=== PATIENT | female | born 1990 | race Two or more races ===

== ENCOUNTER 2017-01-14 00:25 | Emergency (ER) | payer MEDICAID ==
[2017-01-14] MEDS ORDERED: ACETAMINOPHEN 325 MG TABLET PO ONE (00:53)
--- NOTE | 2017-01-14 00:53 | ER Document Report ---
ED Medical Screen (RME) - General Stated Complaint: LOWER BACK PAIN Time seen by provider: 00:51 Mode of Arrival: Wheelchair Information source: Patient Notes: 26 year old female presents to ED for pain in her lower right back for about a week. States she got up off the floor about a week ago and the pain started and has been since then. Denies any incontinence of urine or stool no urinary retention to patient. Has sensation to her feet and toes states she can still walk but it is painful. Last menstrual period was about 01/08/2017. I have greeted and performed a rapid initial assessment of this patient. A comprehensive ED assessment and evaluation of the patient, analysis of test results and completion of medical decision making process will be conducted by an additional ED providers. TRAVEL OUTSIDE OF THE [place] IN LAST 30 DAYS: No - Related Data Allergies/Adverse Reactions: ibuprofen [Ibuprofen] Adverse Reaction (Unknown, Verified 07/05/16 22:53) VOMITING Past Medical History Psychiatric Medical History: Reports: Hx Depression Traumatic Medical History: Reports: Hx Fractures - collar bone Past Surgical History: Reports: Hx Appendectomy, Hx Orthopedic Surgery - foot - Immunizations Immunizations up to date: Yes Hx Diphtheria, Pertussis, Tetanus Vaccination: No Physical Exam - Vital signs Vitals: Temp Pulse Resp BP Pulse Ox 98.1 F 90 18 128/84 H 97 01/14/17 00:48 01/14/17 00:48 01/14/17 00:48 01/14/17 00:48 01/14/17 00:48 Course - Vital Signs Vital signs: Temp Pulse Resp BP Pulse Ox 98.1 F 90 18 128/84 H 97 01/14/17 00:48 01/14/17 00:48 01/14/17 00:48 01/14/17 00:48 01/14/17 00:48
[2017-01-14] MEDS ORDERED: HYDROCODONE/ACETAMINOPHEN 5-325 MG 6 TAB/DSPK PO PRN (04:56)
--- NOTE | 2017-01-14 04:59 | ER Document Report ---
ED Neck/Back Problem - General Chief Complaint: Low Back Pain Stated Complaint: LOWER BACK PAIN Time seen by provider: 04:53 Mode of Arrival: Wheelchair Information source: Patient Notes: [age] female presents to ED for pain in her lower right back for about a week. She states she got up off the floor and the pain started and has been present since then. Denies any incontinence of urine or stool. Denies any urinary retention or constipation. Has sensation to her feet and toes. States she cannot take ibuprofen because it makes her vomit. He denies any fall or injury. TRAVEL OUTSIDE OF THE [place] IN LAST 30 DAYS: No - HPI Patient complains to provider of: Pain, Lower back Onset: Last week Where: Home, Indoors Onset: Gradual - When getting up off the floor Quality of pain: Achy Severity: Moderate Pain Level: 4 Context: Other - Getting up off the floor Associated symptoms: Lower back pain - Right muscles. denies: Constipation, Incontinence, Motor loss, Numbness/tingling, Sensory loss, Unable to urinate Exacerbated by: Movement of trunk Relieved by: Nothing Similar symptoms previously: No Recently seen / treated by doctor: No - Related Data Allergies/Adverse Reactions: ibuprofen [Ibuprofen] Adverse Reaction (Unknown, Verified 07/05/16 22:53) VOMITING Past Medical History - General Information source: Patient - Social History Smoking Status: Current Every Day Smoker Cigarette use (# per day): Yes - half pack a day Chew tobacco use (# tins/day): No Smoking Education Provided: Yes - less than 1 minute Frequency of alcohol use: Occasional Drug Abuse: None 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 Lives with: Friend Family History: Arthritis, DM, Hypertension, Malignancy - Past Medical History Cardiac Medical History: Reports: None Pulmonary Medical History: Reports: None Neurological Medical History: Reports: None Endocrine Medical History: Reports: None Renal/ Medical History: Reports: None Malignancy Medical History: Reports: None GI Medical History: Reports: None Musculoskeltal Medical History: Reports Hx Musculoskeletal Deformity - Foot, Reports Hx Musculoskeletal Trauma - Fractured collarbone Skin Medical History: Reports None Psychiatric Medical History: Reports: Hx Depression Traumatic Medical History: Reports: Hx Fractures - collar bone Infectious Medical History: Reports: None Past Surgical History: Reports: Hx Appendectomy, Hx Orthopedic Surgery - foot - Immunizations Immunizations up to date: No Hx Diphtheria, Pertussis, Tetanus Vaccination: No Review of Systems - Review of Systems Constitutional: No symptoms reported EENT: No symptoms reported Cardiovascular: No symptoms reported Respiratory: No symptoms reported Gastrointestinal: No symptoms reported Genitourinary: No symptoms reported Female Genitourinary: No symptoms reported Musculoskeletal: Back pain, Muscle pain Skin: No symptoms reported Hematologic/Lymphatic: No symptoms reported Neurological/Psychological: No symptoms reported Physical Exam - Vital signs Vitals: Temp Pulse Resp BP Pulse Ox 98.1 F 90 18 128/84 H 97 01/14/17 00:48 01/14/17 00:48 01/14/17 00:48 01/14/17 00:48 01/14/17 00:48 Interpretation: Normal - General General appearance: Appears well, Alert - HEENT Head: Normocephalic, Atraumatic Eyes: Normal Pupils: PERRL - Respiratory Respiratory status: No respiratory distress Chest status: Nontender Breath sounds: Normal Chest palpation: Normal - Cardiovascular Rhythm: Regular Heart sounds: Normal auscultation Murmur: No - Abdominal Inspection: Normal Distension: No distension Bowel sounds: Normal Tenderness: Nontender Organomegaly: No organomegaly - Back Back: Normal, Tender - Right lower back. No: Deformity/step-off, CVA tenderness , Vertebra tenderness, Scars, Scoliosis, Wounds - Extremities General upper extremity: Normal inspection, Nontender, Normal color, Normal ROM , Normal temperature General lower extremity: Normal inspection, Nontender, Normal color, Normal ROM , Normal temperature, Normal weight bearing. 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 Patient has pain to the right muscle area no vertebral tenderness. Patient states she is allergic to ibuprofen. Patient treated with Tylenol in [facility] and discharged home with back care instructions, back exercises, [employer] dispense Jairo , prescription for Flexeril. Patient to follow-up with primary doctor. - Vital Signs Vital signs: Temp Pulse Resp BP Pulse Ox 98.1 F 90 18 128/84 H 97 01/14/17 00:48 01/14/17 00:48 01/14/17 00:48 01/14/17 00:48 01/14/17 00:48 Discharge - Discharge Clinical Impression: Low back pain Qualifiers: Chronicity: acute Back pain laterality: right Sciatica presence: without sciatica Qualified Code(s): M54.5 - Low back pain Condition: Stable Disposition: HOME, SELF-CARE Instructions: Stretching Exercises for the Back ([facility]) Additional Instructions: LOW BACK PAIN: Three out of every four people will have an episode of disabling back pain during their lifetime. Most commonly the pain is due to straining of the muscles and ligaments in the low back. Usual treatment includes: (1) Rest on a firm surface. Avoid lying on your stomach. (2) Ice pack the painful area. After a few days, gentle heat may be used intermittently to relax the area, or ice packs can be continued. (3) Medication may be needed -- muscle relaxers and antiinflammatory medicines are commonly used. (4) As the back improves, exercises are prescribed to strengthen the back and abdominal muscles. Your doctor will advise you on the proper care for your back at each stage in your recovery. You may be better in a few days -- or healing may take several weeks. If new symptoms of a "herniated disc" (radiation of pain, numbness, or tingling down the back of the leg or weakness in the leg) occur, you should be re-examined. Further testing may be necessary. ORAL NARCOTIC MEDICATION: You have been given a prescription for pain control. This medication is a narcotic. It's best taken with food, as nausea can result if taken on an empty stomach. Don't operate machinery or drive within six hours of taking this medication. Do not combine this medicine with alcohol, or with any medication which can cause sedation (such as cold tablets or sleeping pills) unless you get permission from the physician. Narcotics tend to cause constipation. If possible, drink plenty of fluids and eat a diet high in fiber and fruits. Please be aware that prescription narcotics also have the potential for abuse. People become addicted to these medications because of the general sense of wellbeing that they induce. This feeling along with a significant reduction in tension, anxiety, and aggression provides a stimulating seductive quality to these drugs. Once your pain is under control, we encourage you to discard your unused narcotics. MUSCLE RELAXERS: Muscle relaxing medications are usually prescribed for acute muscle spasm or injury to the neck and back. They are often combined with antiinflammatory pain medication for increased relief. You may stop the muscle relaxer when the pain and stiffness have improved. Start the medication again if spasms recur. Muscle relaxers may cause drowsiness, especially with the first dose. Do not operate machinery or drive while under the effects of the medication. Most muscle relaxers last up to 24 hours. Do not combine the medication with alcohol. ICE PACKS: Apply ice packs frequently against the painful area. Many different schedules are recommended, such as "20 minutes on, 20 minutes off" or "one hour ice, two hours rest." If you need to work, you may need to go longer between ice treatments. You should plan to have the area ice packed AT LEAST one fourth of the time. The ice should be applied over the wrap, tape, or splint, or over a layer of cloth -- not directly against the skin. Some ice bags have a built-in cloth and can be put directly on the skin. WARM PACKS: After approximately two days, apply gentle heat (such as a heating pad or hot water bottle) for about 20 to 30 minutes about every two hours -- at least four times daily. Warmth and elevation will help you make a more rapid recovery , and will ease the pain considerably. Do not use HOT heat, and never apply heat for longer than 30 minutes. The continuous heat can invisibly damage skin and muscles -- even when no burn is seen on the surface. Damaged muscles can make you MORE sore. FOLLOW-UP CARE: If you have been referred to a physician for follow-up care, call the physician s office for an appointment as you were instructed or within the next two days. If you experience worsening or a significant change in your symptoms, notify the physician immediately or return to the Emergency Department at any time for re-evaluation. Prescriptions: Cyclobenzaprine HCl [Flexeril 5 mg Tablet] 5 mg PO TID #10 tablet Forms: Smoking Cessation Education, Elevated Blood Pressure, Return to Work [facility] - Follow up as needed
[2017-01-14 05:25] VITALS: BP 119/88
== END 2017-01-14 05:20 | disposition home or self-care (01) ==
LOC: ER 00:25
DX: M54.5 Low back pain (principal); F17.210 Nicotine dependence, cigarettes, uncomplicated; Z71.6 Tobacco abuse counseling
CPT/HCPCS: 99283; J3490

== ENCOUNTER 2017-02-21 13:11 | Emergency (ER) | payer MEDICAID ==
[2017-02-21] MEDS ORDERED: ONDANSETRON 4 MG TAB.RAPDIS PO ONE (14:37)
--- NOTE | 2017-02-21 14:38 | ER Document Report ---
ED Medical Screen (RME) - General Chief Complaint: Abdominal Pain Stated Complaint: ABDOMINAL PAIN TRAVEL OUTSIDE OF THE [place] IN LAST 30 DAYS: No - HPI Patient complains to provider of: right lower quadrant pain Notes: 02/21/17 14:38 Right lower quadrant pain nausea vomiting fevers chills. Patient states history of appendectomy. - Related Data Allergies/Adverse Reactions: ibuprofen [Ibuprofen] Adverse Reaction (Unknown, Verified 02/21/17 13:17) VOMITING Past Medical History Renal/ Medical History: Denies: Hx Peritoneal Dialysis Musculoskeltal Medical History: Reports Hx Musculoskeletal Deformity - Foot, Reports Hx Musculoskeletal Trauma - Fractured collarbone Psychiatric Medical History: Reports: Hx Depression Traumatic Medical History: Reports: Hx Fractures - collar bone Past Surgical History: Reports: Hx Appendectomy, Hx Orthopedic Surgery - foot - Immunizations Immunizations up to date: No Hx Diphtheria, Pertussis, Tetanus Vaccination: No Review of Systems - Review of Systems Gastrointestinal: Abdominal pain, Diarrhea, Nausea, Vomiting Physical Exam - Vital signs Vitals: Temp Pulse Resp BP Pulse Ox 98.6 F 103 H 20 131/77 H 99 02/21/17 13:18 02/21/17 13:18 02/21/17 13:18 02/21/17 13:18 02/21/17 13:18 - Respiratory Respiratory status: No respiratory distress Chest status: Nontender Breath sounds: Normal Course - Vital Signs Vital signs: Temp Pulse Resp BP Pulse Ox 98.6 F 103 H 20 131/77 H 99 02/21/17 13:18 02/21/17 13:18 02/21/17 13:18 02/21/17 13:18 02/21/17 13:18
[2017-02-21 14:57] LABS: ABSOLUTE EOSINOPHILS # (AUTO) 0.1 10^3/uL (0.0-0.6); ABSOLUTE LYMPHOCYTES (AUTO) 1.5 10^3/uL (0.5-4.7); ABSOLUTE MONOCYTES (AUTO) 0.9 10^3/uL (0.1-1.4); ABSOLUTE NEUT (AUTO) 11.3 10^3/uL (1.7-8.2); BASOPHILS % (AUTO) 0.3 % (0-2); EOSINOPHILS % (AUTO) 0.7 % (0-6); HEMATOCRIT 42.6 % (36.0-47.0); HGB HCT DIFFERENCE -0.6; LYMPHOCYTES % (AUTO) 10.7 % (13-45); MEAN CORPUSCULAR HGB CONC 32.9 g/dL (32.0-36.0); MEAN CORPUSCULAR VOLUME 82 fl (80-97); MONOCYTES % (AUTO) 6.7 % (3-13); RED BLOOD COUNT 5.17 10^6/uL (3.72-5.28); RED CELL DISTRIBUTION WIDTH 14.8 % (11.5-14.0); SEGMENTED NEUTROPHILS % (AUTO) 81.6 % (42-78); WHITE BLOOD COUNT 13.9 10^3/uL (4.0-10.5)
[2017-02-21 15:03] LABS: AMORPHOUS SEDIMENT,URINE TRACE /HPF; APPEARANCE,URINE CLOUDY; BILIRUBIN,URINE NEGATIVE (NEGATIVE); GLUCOSE, URINE NEGATIVE (NEGATIVE); KETONES,URINE NEGATIVE (NEGATIVE); LEUKOCYTE ESTERASE,URINE TRACE (NEGATIVE); NITRITE,URINE NEGATIVE (NEGATIVE); PROTEIN,URINE 30 mg/dL (NEGATIVE); URINE SPECIFIC GRAVITY 1.033
[2017-02-21 15:12] LABS: ANION GAP 13 (5-19); BLOOD UREA NITROGEN 10 mg/dL (7-20); CALCIUM 10.2 mg/dL (8.4-10.2); CARBON DIOXIDE 25 mmol/L (22-30); CHLORIDE 106 mmol/L (98-107); CREATININE RESULT 0.57 mg/dL (0.52-1.25); GLUCOSE 93 mg/dL (75-110); SODIUM 144.2 mmol/L (137-145)
--- NOTE | 2017-02-21 16:23 | ER Document Report ---
ED GI/ - General Mode of Arrival: Ambulatory Information source: Patient TRAVEL OUTSIDE OF THE [place] IN LAST 30 DAYS: No - HPI Patient complains to provider of: Abdominal pain - RLQ. No: Flank pain, Vaginal bleeding Onset: Other - 3 days ago Location: RLQ Vaginal bleeding (Compared to normal period): None Sexual history: Active Associated symptoms: Other - see notes above <IWONA GEORGE - Last Filed: 02/21/17 18:06> <JORDI SNELL - Last Filed: 02/21/17 19:03> - General Chief Complaint: Abdominal Pain Stated Complaint: ABDOMINAL PAIN Notes: 26 year old female with history of ovarian cysts and an appendectomy presents to the ED complaining of RLQ abdominal pain that started 3 days ago. Patient reports that the pain does not radiates to her back. Patient denies any vaginal bleeding or dysuria. Patient's last bowel movement was earlier today and describes it as normal. According to triage notes, patient had similar pains last summer and was diagnosed with ovarian cysts that she was supposed to follow up with a provider, but did not. Patient's last menstural period was 05/2014. Patient is sexually active, but states that she does not think this is a STD. (IWONA GEORGE) - Related Data Allergies/Adverse Reactions: ibuprofen [Ibuprofen] Adverse Reaction (Unknown, Verified 02/21/17 13:17) VOMITING Past Medical History - General Information source: Patient - Social History Smoking Status: Unknown if Ever Smoked Family History: Arthritis, DM, Hypertension, Malignancy Patient has suicidal ideation: No Patient has homicidal ideation: No Renal/ Medical History: Reports: Hx Ovarian Cysts. Denies: Hx Peritoneal Dialysis Musculoskeltal Medical History: Reports Hx Musculoskeletal Deformity - Foot, Reports Hx Musculoskeletal Trauma - Fractured collarbone Psychiatric Medical History: Reports: Hx Depression Traumatic Medical History: Reports: Hx Fractures - collar bone Past Surgical History: Reports: Hx Appendectomy, Hx Orthopedic Surgery - foot - Immunizations Immunizations up to date: No Hx Diphtheria, Pertussis, Tetanus Vaccination: No <IWONA GEORGE - Last Filed: 02/21/17 18:06> Review of Systems - Review of Systems Constitutional: No symptoms reported EENT: No symptoms reported Cardiovascular: No symptoms reported Respiratory: No symptoms reported Gastrointestinal: See HPI, Abdominal pain - RLQ, Last bowel movement - earlier today; normal Genitourinary: No symptoms reported. denies: Dysuria Female Genitourinary: See HPI, Last menstrual period - 01/26/2014. denies: Vaginal bleeding Musculoskeletal: No symptoms reported Skin: No symptoms reported Hematologic/Lymphatic: No symptoms reported Neurological/Psychological: No symptoms reported -: Yes All other systems reviewed and negative <IWONA GEORGE - Last Filed: 02/21/17 18:06> Physical Exam - General General appearance: Alert In distress: None - HEENT Head: Normocephalic, Atraumatic Eyes: Normal Extraocular movements intact: Yes Pupils: PERRL - Respiratory Respiratory status: No respiratory distress Breath sounds: Normal - Cardiovascular Rhythm: Regular Heart sounds: Normal auscultation - Abdominal Inspection: Normal Distension: No distension Tenderness: Tender - right pevlic tenderness to palpation. No: Nontender - Back Back: Normal. No: CVA tenderness - Extremities General upper extremity: Normal inspection, Normal ROM General lower extremity: Normal inspection, Normal ROM - Neurological Neuro grossly intact: Yes Cognition: Normal Orientation: AAOx4 [place] Coma Scale Eye Opening: Spontaneous Goldie Coma Scale Verbal: Oriented [place] Coma Scale Motor: Obeys Commands [place] Coma Scale Total: 15 Speech: Normal - Psychological Associated symptoms: Normal affect, Normal mood - Skin Skin Temperature: Warm Skin Moisture: Dry Skin Color: Normal <IWONA GEORGE - Last Filed: 02/21/17 18:06> Course - Laboratory Result Diagrams: 02/21/17 14:40 02/21/17 14:40 - Consults Dr. Ramirez Time consulted: 16:51 <IWONA GEORGE - Last Filed: 02/21/17 18:06> - Laboratory Result Diagrams: 02/21/17 14:40 02/21/17 14:40 - Diagnostic Test Radiology reviewed: Reports reviewed <JORDI SNELL - Last Filed: 02/21/17 19:03> - Re-evaluation Re-evalutation: 02/21/17 Patient with teratoma involving R ovary. Patient will be given pain and nausea medication to go home with. Patient was discussed with Dr. Ferrari states that they will follow the patient regarding removal of the teratoma. No evidence for torsion. No evidence for infection or renal stone. Patient agrees with this plan. Stable for discharge. (JORDI SNELL) - Vital Signs Vital signs: Temp Pulse Resp BP Pulse Ox 98.5 F 89 16 126/72 H 99 02/21/17 17:36 02/21/17 17:36 02/21/17 17:36 02/21/17 17:36 02/21/17 17:36 - Laboratory Laboratory results interpreted by me: 02/21/17 02/21/17 14:40 14:40 WBC 13.9 H RDW 14.8 H Seg Neutrophils % 81.6 H Lymphocytes % 10.7 L Absolute Neutrophils 11.3 H Urine Protein 30 H Urine Urobilinogen 2.0 H Ur Leukocyte Esterase TRACE H Urine Ascorbic Acid 20 H - Consults Dr. Ramirez Reason for consultation: 02/21/17 16:51 Patient was discussed with Dr. Ramirez and agrees to see the patient in the clinic. 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.0 - Benign neoplasm of right ovary Condition: Stable Disposition: HOME, SELF-CARE Instructions: Ovarian Cyst ([facility]) Prescriptions: Ondansetron [Zofran Odt 4 mg Tablet] 1 - 2 tab PO Q4H PRN #15 tab.rapdis PRN Reason: For Nausea/Vomiting Oxycodone HCl/Acetaminophen [Percocet 5-325 mg Tablet] 1 - 2 tab PO Q4H PRN #15 tablet PRN Reason: Forms: Return to Work Referrals: DEANNA RAMIREZ MD [ACTIVE STAFF] - Follow up in 3-5 days Scribe Attestation: 02/21/17 19:03 I personally performed the services described in the documentation, reviewed and edited the documentation which was dictated to the scribe in my presence, and it accurately records my words and actions. (JORDI SNELL) Scribe Documentation - Scribe Written by Scribe:: Milton Llamas, 02/21/2017 [id number] acting as scribe for :: Suzette <IWONA GEORGE - Last Filed: 02/21/17 18:06>
[2017-02-21] MEDS ORDERED: OXYCODONE-ACETAMINOPHEN 5-325 MG TABLET PO ONE (16:51)
[2017-02-21 17:37] VITALS: BP 126/72
== END 2017-02-21 17:37 | disposition home or self-care (01) ==
LOC: ER 13:11
DX: D27.0 Benign neoplasm of right ovary (principal); R10.31 Right lower quadrant pain
CPT/HCPCS: 99284; 36415; 84703; 85025; 80048; 81001; 76830; 93976; 76380; S0119

== ENCOUNTER 2017-03-13 01:38 | Emergency (ER) | payer MEDICAID ==
[2017-03-13] MEDS ORDERED: OXYCODONE-ACETAMINOPHEN 5-325 MG TABLET PO ONE (03:34)
--- NOTE | 2017-03-13 03:34 | ER Document Report ---
ED Medical Screen (RME) - General Chief Complaint: Abdominal Pain Stated Complaint: LOWER RIGHT ABDOMINAL PAIN Mode of Arrival: Ambulatory Information source: Patient Notes: Patient with a history of a teratoma to the right ovary. Patient reports sudden increase of pain around midnight tonight. Patient denies any fever, nausea, vomiting or urinary symptoms. TRAVEL OUTSIDE OF THE [place] IN LAST 30 DAYS: No - Related Data Allergies/Adverse Reactions: ibuprofen [Ibuprofen] Adverse Reaction (Unknown, Verified 02/21/17 13:17) VOMITING Past Medical History Renal/ Medical History: Reports: Hx Ovarian Cysts. Denies: Hx Peritoneal Dialysis Musculoskeltal Medical History: Reports Hx Musculoskeletal Deformity - Foot, Reports Hx Musculoskeletal Trauma - Fractured collarbone Psychiatric Medical History: Reports: Hx Depression Traumatic Medical History: Reports: Hx Fractures - collar bone Past Surgical History: Reports: Hx Appendectomy, Hx Orthopedic Surgery - foot - Immunizations Immunizations up to date: No Hx Diphtheria, Pertussis, Tetanus Vaccination: No Physical Exam - Vital signs Vitals: Temp Pulse Resp BP Pulse Ox 98.2 F 81 18 125/77 100 03/13/17 02:49 03/13/17 02:49 03/13/17 02:49 03/13/17 02:49 03/13/17 02:49 - Abdominal Tenderness: Tender - Right pelvic Course - Vital Signs Vital signs: Temp Pulse Resp BP Pulse Ox 98.2 F 81 18 125/77 100 03/13/17 02:49 03/13/17 02:49 03/13/17 02:49 03/13/17 02:49 03/13/17 02:49
--- NOTE | 2017-03-13 06:23 | ER Document Report ---
ED GI/ - General Mode of Arrival: Ambulatory Information source: Patient TRAVEL OUTSIDE OF THE [place]. IN LAST 30 DAYS: No - HPI Patient complains to provider of: Abdominal pain - RLQ Onset: Other - last night Location: RLQ Associated symptoms: Other - see notes above <IWONA GEORGE - Last Filed: 03/13/17 07:34> <ELLIOTT LOPEZ - Last Filed: 04/01/17 15:32> - General Chief Complaint: Abdominal Pain Stated Complaint: LOWER RIGHT ABDOMINAL PAIN Notes: 26 year old female with history of ovarian cysts and a teratoma presents to the ED complaining of RLQ abdominal pain that started this morning. Patient was seen on 02/21/2017 for similar complaints and was told to follow up with her OB , Dr. Rothman, regarding this complaint. Patient states that she saw Dr. Rothman 4 days ago and was told that she needs a referral to an oncologist. Patient is unsure why she needs to see an oncologist. Patient reports that Dr. Rothman is not prescribing any medication for the teratoma. Patient does not have a follow up appointment with Dr. Rothman because she was told that they will call if she needs another appointment. Patient's primary care provider is the [facility]. (IWONA GEORGE) - Related Data Allergies/Adverse Reactions: ibuprofen [Ibuprofen] Adverse Reaction (Unknown, Verified 02/21/17 13:17) VOMITING Past Medical History - General Information source: Patient - Social History Smoking Status: Unknown if Ever Smoked Family History: Arthritis, DM, Hypertension, Malignancy Patient has suicidal ideation: No Patient has homicidal ideation: No Renal/ Medical History: Reports: Hx Ovarian Cysts. Denies: Hx Peritoneal Dialysis Musculoskeltal Medical History: Reports Hx Musculoskeletal Deformity - Foot, Reports Hx Musculoskeletal Trauma - Fractured collarbone Psychiatric Medical History: Reports: Hx Depression Traumatic Medical History: Reports: Hx Fractures - collar bone Past Surgical History: Reports: Hx Appendectomy, Hx Orthopedic Surgery - foot - Immunizations Immunizations up to date: No Hx Diphtheria, Pertussis, Tetanus Vaccination: No <IWONA GEORGE - Last Filed: 03/13/17 07:34> Review of Systems - Review of Systems Constitutional: No symptoms reported EENT: No symptoms reported Cardiovascular: No symptoms reported Respiratory: No symptoms reported Gastrointestinal: See HPI, Abdominal pain - RLQ Genitourinary: No symptoms reported Female Genitourinary: No symptoms reported Musculoskeletal: No symptoms reported Skin: No symptoms reported Hematologic/Lymphatic: No symptoms reported Neurological/Psychological: No symptoms reported -: Yes All other systems reviewed and negative <IWONA GEORGE - Last Filed: 03/13/17 07:34> Physical Exam - General General appearance: Alert In distress: None - HEENT Head: Normocephalic, Atraumatic Eyes: Normal Extraocular movements intact: Yes Pupils: PERRL - Respiratory Respiratory status: No respiratory distress Breath sounds: Normal - Cardiovascular Rhythm: Regular Heart sounds: Normal auscultation - Abdominal Inspection: Normal Distension: No distension Tenderness: Nontender. No: Guarding, Rebound - Back Back: Normal - Extremities General upper extremity: Normal inspection, Normal ROM General lower extremity: Normal inspection, Normal ROM - Neurological Neuro grossly intact: Yes Cognition: Normal Orientation: AAOx4 [place] Coma Scale Eye Opening: Spontaneous [place] Coma Scale Verbal: Oriented [place] Coma Scale Motor: Obeys Commands [place] Coma Scale Total: 15 Speech: Normal - Psychological Associated symptoms: Normal affect, Normal mood - Skin Skin Temperature: Warm Skin Moisture: Dry Skin Color: Normal <IWONA GEORGE - Last Filed: 03/13/17 07:34> Course - Laboratory Result Diagrams: 03/13/17 06:04 03/13/17 06:04 <IWONA GEORGE - Last Filed: 03/13/17 07:34> - Laboratory Result Diagrams: 03/13/17 06:04 03/13/17 06:04 <ELLIOTT LOPEZ - Last Filed: 04/01/17 15:32> - Re-evaluation Re-evalutation: 03/13/17 06:28 Patient presents emergency per with a chief complaint of right-sided abdominal pain patient seen and evaluated here recently diagnosed with an ovarian cyst possible teratoma followed up outpatient by Dr. Rothman on Wednesday Dr. Rothman stated that they were going to refer her to a quarrying specialist in [place] she is waiting for the appointment. She states Dr. Rothmanon prescribe anything for her discomfort and has not seen a primary care physician. On exam well- appearing nontoxic no acute abdominal guarding rebound or rigidity. Masses increased in size very slightly from 3.4-3.7. No torsion. Patient is allergic to Motrin Toradol and Naprosyn which is what I would prescribe for this. Told her any ongoing pain medications or chronic related complaints secondary to this needed to be managed by the [facility] or primary care physician but to return immediately for any other signs of a torsion and went into great detail on worsening pain or torsion type pain to return immediately to the emergency department. 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 This is a ball of fluid attached to the ovary. Ovarian cysts in women of child-bearing age are usually innocent. However, the cyst may cause pain when it grows or bursts. An innocent ovarian cyst will usually go away by itself. When the cyst becomes painful, you should rest. Pain medication may be required. Some women find a hot water bottle soothing. The pain usually resolves within one or two days. After menopause, an ovarian cyst may mean a tumor, and requires more aggressive evaluation -- usually surgery is recommended to remove or biopsy the cyst. A very large cyst requires evaluation at any age. Most cysts (even the innocent ones) require follow-up examination. Call the doctor or return at any time if the pain increases significantly, if you become faint, or if you experience vaginal bleeding. Forms: Return to Work Referrals: RADHA ROTHMAN MD [ACTIVE STAFF] - Follow up as needed (Please create a second visit with Dr. Rothman who is managing this is going forward any or all medications would need to be prescribed by him or your primary care physician and see them in 2-3 days return for increasing worsening or new symptoms) Johnibe Attestation: 03/13/17 06:27 I personally performed the services described in the documentation reviewed the documentation recorded by my scribe in my presence and it accurately and completely records my words and actions (ELLIOTT LOPEZ) Scribe Documentation - Scribe Written by Milton:: Milton Llamas, 03/13/2017 [id number] acting as scribe for :: Erik <IWONA GEORGE - Last Filed: 03/13/17 07:34>
[2017-03-13 06:25] LABS: ABSOLUTE BASOPHILS # (AUTO) 0.1 10^3/uL (0.0-0.2); ABSOLUTE EOSINOPHILS # (AUTO) 0.2 10^3/uL (0.0-0.6); ABSOLUTE LYMPHOCYTES (AUTO) 3.2 10^3/uL (0.5-4.7); ABSOLUTE MONOCYTES (AUTO) 0.8 10^3/uL (0.1-1.4); ABSOLUTE NEUT (AUTO) 7.1 10^3/uL (1.7-8.2); BASOPHILS % (AUTO) 0.6 % (0-2); EOSINOPHILS % (AUTO) 2.1 % (0-6); HEMATOCRIT 39.2 % (36.0-47.0); HEMOGLOBIN 12.8 g/dL (12.0-15.5); HGB HCT DIFFERENCE -0.8; LYMPHOCYTES % (AUTO) 28.2 % (13-45); MEAN CORPUSCULAR HEMOGLOBIN 26.6 pg (27.0-33.4); MEAN CORPUSCULAR HGB CONC 32.7 g/dL (32.0-36.0); MEAN CORPUSCULAR VOLUME 81 fl (80-97); RED BLOOD COUNT 4.83 10^6/uL (3.72-5.28); RED CELL DISTRIBUTION WIDTH 14.7 % (11.5-14.0); SEGMENTED NEUTROPHILS % (AUTO) 62.1 % (42-78); WHITE BLOOD COUNT 11.5 10^3/uL (4.0-10.5)
[2017-03-13 06:27] LABS: APPEARANCE,URINE SLIGHTLY-CLOUDY; BILIRUBIN,URINE SMALL (NEGATIVE); GLUCOSE, URINE NEGATIVE (NEGATIVE); KETONES,URINE TRACE mg/dL (NEGATIVE); LEUKOCYTE ESTERASE,URINE NEGATIVE (NEGATIVE); NITRITE,URINE NEGATIVE (NEGATIVE); PROTEIN,URINE 30 mg/dL (NEGATIVE); URINE SPECIFIC GRAVITY 1.034
[2017-03-13 06:43] LABS: ALANINE AMINOTRANSFERASE 33 U/L (9-52); ALBUMIN 4.5 g/dL (3.5-5.0); ALKALINE PHOSPHATASE 61 U/L (38-126); ANION GAP 15 (5-19); ASPARTATE AMINO TRANSFERASE 51 U/L (14-36); BILIRUBIN,DIRECT 0.2 mg/dL (0.0-0.4); BILIRUBIN,TOTAL 0.3 mg/dL (0.2-1.3); BLOOD UREA NITROGEN 10 mg/dL (7-20); CALCIUM 9.6 mg/dL (8.4-10.2); CARBON DIOXIDE 25 mmol/L (22-30); CHLORIDE 107 mmol/L (98-107); GLUCOSE 84 mg/dL (75-110); LIPASE 67.3 U/L (23-300); POTASSIUM 3.5 mmol/L (3.6-5.0); SODIUM 146.8 mmol/L (137-145); TOTAL PROTEIN 7.6 g/dL (6.3-8.2)
[2017-03-13 06:45] VITALS: BP 123/90
== END 2017-03-13 06:35 | disposition home or self-care (01) ==
LOC: ER 01:38
DX: D27.0 Benign neoplasm of right ovary (principal); R10.30 Lower abdominal pain, unspecified
CPT/HCPCS: 36415; 76830; 80053; 81001; 81025; 83690; 85025; 99284

== ENCOUNTER 2017-05-19 04:32 | Emergency (ER) | payer MEDICAID ==
[2017-05-19 05:06] LABS: ABSOLUTE BASOPHILS # (AUTO) 0.1 10^3/uL (0.0-0.2); ABSOLUTE EOSINOPHILS # (AUTO) 0.2 10^3/uL (0.0-0.6); ABSOLUTE LYMPHOCYTES (AUTO) 2.5 10^3/uL (0.5-4.7); ABSOLUTE MONOCYTES (AUTO) 0.9 10^3/uL (0.1-1.4); ABSOLUTE NEUT (AUTO) 8.3 10^3/uL (1.7-8.2); BASOPHILS % (AUTO) 0.4 % (0-2); EOSINOPHILS % (AUTO) 1.8 % (0-6); HEMATOCRIT 37.2 % (36.0-47.0); HEMOGLOBIN 12.2 g/dL (12.0-15.5); HGB HCT DIFFERENCE -0.6; LYMPHOCYTES % (AUTO) 20.8 % (13-45); MEAN CORPUSCULAR HEMOGLOBIN 26.7 pg (27.0-33.4); MEAN CORPUSCULAR HGB CONC 32.6 g/dL (32.0-36.0); MEAN CORPUSCULAR VOLUME 82 fl (80-97); MONOCYTES % (AUTO) 7.2 % (3-13); RED BLOOD COUNT 4.55 10^6/uL (3.72-5.28); RED CELL DISTRIBUTION WIDTH 14.5 % (11.5-14.0); SEGMENTED NEUTROPHILS % (AUTO) 69.8 % (42-78); WHITE BLOOD COUNT 11.9 10^3/uL (4.0-10.5)
--- NOTE | 2017-05-19 05:14 | ER Document Report ---
ED General - General Chief Complaint: Abdominal Pain Stated Complaint: ABDOMINAL PAIN Time Seen by Provider: 05/19/17 04:52 Mode of Arrival: Medic Information source: Patient TRAVEL OUTSIDE OF THE [place] IN LAST 30 DAYS: No - Related Data Allergies/Adverse Reactions: ibuprofen [Ibuprofen] Adverse Reaction (Unknown, Verified 02/21/17 13:17) VOMITING Past Medical History - General Information source: Patient - Social History Family History: Arthritis, DM, Hypertension, Malignancy Renal/ Medical History: Reports: Hx Ovarian Cysts. Denies: Hx Peritoneal Dialysis Musculoskeltal Medical History: Reports Hx Musculoskeletal Deformity - Foot, Reports Hx Musculoskeletal Trauma - Fractured collarbone Psychiatric Medical History: Reports: Hx Depression Traumatic Medical History: Reports: Hx Fractures - collar bone Past Surgical History: Reports: Hx Appendectomy, Hx Orthopedic Surgery - foot - Immunizations Immunizations up to date: No Hx Diphtheria, Pertussis, Tetanus Vaccination: No Review of Systems - Review of Systems Notes: Review HPI for review of systems., All other systems negative Physical Exam - Notes Notes: PHYSICAL EXAMINATION: GENERAL: Well-appearing and in no acute distress HEAD: Atraumatic, normocephalic. EYES: Pupils equal round and reactive to light, extraocular movements intact, sclera anicteric, conjunctiva are normal. ENT: nares patent, oropharynx clear without exudates. Moist mucous membranes. NECK: Normal range of motion, supple without lymphadenopathy LUNGS: CTAB and equal. No wheezes rales or rhonchi. HEART: Regular rate and rhythm without murmurs ABDOMEN: Soft, no tenderness. No guarding, no rebound EXTREMITIES: Normal range of motion, no pitting edema. No cyanosis. NEUROLOGICAL: Cranial nerves grossly intact. Normal sensory/motor exams. PSYCH: Normal mood, normal affect. SKIN: Warm, Dry, normal turgor, no rashes or lesions noted Course - Laboratory Result Diagrams: 05/19/17 04:42 05/19/17 04:42 Laboratory results interpreted by me: 05/19/17 04:42 WBC 11.9 H MCH 26.7 L RDW 14.5 H Absolute Neutrophils 8.3 H
[2017-05-19 05:20] LABS: ALANINE AMINOTRANSFERASE 30 U/L (9-52); ALBUMIN 4.2 g/dL (3.5-5.0); ALKALINE PHOSPHATASE 68 U/L (38-126); ANION GAP 11 (5-19); ASPARTATE AMINO TRANSFERASE 17 U/L (14-36); BILIRUBIN,DIRECT 0.3 mg/dL (0.0-0.4); BILIRUBIN,TOTAL 0.3 mg/dL (0.2-1.3); BLOOD UREA NITROGEN 15 mg/dL (7-20); CALCIUM 9.6 mg/dL (8.4-10.2); CARBON DIOXIDE 21 mmol/L (22-30); CHLORIDE 108 mmol/L (98-107); CREATININE RESULT 0.73 mg/dL (0.52-1.25); GLUCOSE 98 mg/dL (75-110); POTASSIUM 3.8 mmol/L (3.6-5.0); SODIUM 140.2 mmol/L (137-145); TOTAL PROTEIN 7.1 g/dL (6.3-8.2)
--- NOTE | 2017-05-19 06:24 | ER Document Report ---
ED Medical Screen (RME) - General Chief Complaint: Abdominal Pain Stated Complaint: ABDOMINAL PAIN Time Seen by Provider: 05/19/17 04:52 Mode of Arrival: Medic Information source: Patient Notes: pt presents to the ED with c/o abd. pain, vaginal bleeding, hx of ovarian cysts. Pt reports she has a bed bug problem. TRAVEL OUTSIDE OF THE [place] IN LAST 30 DAYS: No - Related Data Allergies/Adverse Reactions: ibuprofen [Ibuprofen] Adverse Reaction (Unknown, Verified 02/21/17 13:17) VOMITING Past Medical History Renal/ Medical History: Reports: Hx Ovarian Cysts. Denies: Hx Peritoneal Dialysis Musculoskeltal Medical History: Reports Hx Musculoskeletal Deformity - Foot, Reports Hx Musculoskeletal Trauma - Fractured collarbone Psychiatric Medical History: Reports: Hx Depression Traumatic Medical History: Reports: Hx Fractures - collar bone Past Surgical History: Reports: Hx Appendectomy, Hx Orthopedic Surgery - foot - Immunizations Immunizations up to date: No Hx Diphtheria, Pertussis, Tetanus Vaccination: No Physical Exam - Vital signs Vitals: Temp Pulse Resp BP Pulse Ox 97.9 F 93 16 146/95 H 100 05/19/17 04:41 05/19/17 04:41 05/19/17 04:41 05/19/17 04:41 05/19/17 04:41 Course - Vital Signs Vital signs: Temp Pulse Resp BP Pulse Ox 98 F 93 17 139/96 H 100 05/19/17 05:22 05/19/17 05:22 05/19/17 05:22 05/19/17 05:22 05/19/17 05:22 - Laboratory Result Diagrams: 05/19/17 04:42 05/19/17 04:42 Laboratory results interpreted by me: 05/19/17 05/19/17 04:42 04:42 WBC 11.9 H MCH 26.7 L RDW 14.5 H Absolute Neutrophils 8.3 H Chloride 108 H Carbon Dioxide 21 L
--- NOTE | 2017-05-19 06:48 | RADIOLOGY REPORT (SQ) ---
EXAM DESCRIPTION: U/S NON OB PEL TV W/DOPPLER COMPLETED DATE/TIME: 05/19/2017 6:31 am REASON FOR STUDY: abd pain, ovarian cyst COMPARISON: 03/13/2017. TECHNIQUE: Dynamic and static grayscale images acquired of the pelvis via transvaginal approach and recorded on PACS. Additional selected color Doppler and spectral images recorded. LIMITATIONS: None. FINDINGS: UTERUS: Contour normal. No mass. ENDOMETRIAL STRIPE: No focal or generalized thickening. No masses. Nonspecific vascularity noted. CERVIX: No nabothian cysts. RIGHT OVARY: Right salpingo-oophorectomy due to history of teratoma. LEFT OVARY: No abnormal masses. 3.6 cm. LEFT OVARY DOPPLER: Normal arterial vascular flow without evidence for torsion. FREE FLUID: Trace. OTHER: No other significant finding. MEASUREMENTS: UTERUS: 6.4 cm x 6 x 5 cm. ENDOMETRIAL STRIPE: 1.1 cm thickness. RIGHT OVARY: Not visualized. LEFT OVARY: 3.6 cm. IMPRESSION: Right ovary is not visualized consistent with history of right salpingo-oophorectomy. O therwise, unremarkable. TECHNICAL DOCUMENTATION: JOB ID: [id number]- All Rights Reserved
[2017-05-19 06:54] LABS: APPEARANCE,URINE CLEAR; BILIRUBIN,URINE NEGATIVE (NEGATIVE); GLUCOSE, URINE NEGATIVE (NEGATIVE); KETONES,URINE NEGATIVE (NEGATIVE); LEUKOCYTE ESTERASE,URINE NEGATIVE (NEGATIVE); NITRITE,URINE NEGATIVE (NEGATIVE); PROTEIN,URINE NEGATIVE (NEGATIVE); URINE SPECIFIC GRAVITY 1.003; UROBILINOGEN,URINE NEGATIVE mg/dL (<2.0)
--- NOTE | 2017-05-19 09:48 | ER Document Report ---
ED GI/ - General Mode of Arrival: Medic Information source: Patient TRAVEL OUTSIDE OF THE [place] IN LAST 30 DAYS: No - HPI Patient complains to provider of: Abdominal pain Onset: Just prior to arrival <THO MUNIZ - Last Filed: 05/19/17 14:59> <ELLIOTT LOPEZ - Last Filed: 05/27/17 22:59> - General Chief Complaint: Abdominal Pain Stated Complaint: ABDOMINAL PAIN Time Seen by Provider: 05/19/17 04:52 Notes: Patient is a 26-year-old female who presents to the emergency department today with complaints of epigastric abdominal pain with white vaginal discharge. Patient states she has a history of chlamydia. Patient denies a history of endometriosis. (THO MUNIZ) - Related Data Allergies/Adverse Reactions: ibuprofen [Ibuprofen] Adverse Reaction (Unknown, Verified 02/21/17 13:17) VOMITING Past Medical History - General Information source: Patient - Social History Smoking Status: Never Smoker Cigarette use (# per day): No Frequency of alcohol use: None Drug Abuse: None Lives with: Family Family History: Arthritis, DM, Hypertension, Malignancy Patient has suicidal ideation: No Patient has homicidal ideation: No Renal/ Medical History: Reports: Hx Ovarian Cysts Musculoskeltal Medical History: Reports Hx Musculoskeletal Deformity - Foot, Reports Hx Musculoskeletal Trauma - Fractured collarbone Psychiatric Medical History: Reports: Hx Depression Traumatic Medical History: Reports: Hx Fractures - collar bone Past Surgical History: Reports: Hx Appendectomy, Hx Orthopedic Surgery - foot - Immunizations Immunizations up to date: No Hx Diphtheria, Pertussis, Tetanus Vaccination: No <THO MUNIZ - Last Filed: 05/19/17 14:59> <ELLIOTT LOPEZ - Last Filed: 05/27/17 22:59> - Medical History Notes: Hx chlamydia (THO MUNIZ) Review of Systems - Review of Systems Constitutional: No symptoms reported EENT: No symptoms reported Cardiovascular: No symptoms reported Respiratory: No symptoms reported Gastrointestinal: See HPI, Abdominal pain Genitourinary: No symptoms reported Female Genitourinary: See HPI, Vaginal discharge Musculoskeletal: No symptoms reported Skin: No symptoms reported Hematologic/Lymphatic: No symptoms reported Neurological/Psychological: No symptoms reported -: Yes All other systems reviewed and negative <THO MUNIZ - Last Filed: 05/19/17 14:59> Physical Exam <THO MUNIZ - Last Filed: 05/19/17 14:59> <ELLIOTT LOPEZ - Last Filed: 05/27/17 22:59> - Vital signs Vitals: Temp Pulse Resp BP Pulse Ox 97.9 F 93 16 146/95 H 100 05/19/17 04:41 05/19/17 04:41 05/19/17 04:41 05/19/17 04:41 05/19/17 04:41 - Notes Notes: Physical Exam: General: Alert. HEENT: Normocephalic. Atraumatic. PERRL. Extraocular movements intact. Oropharynx clear. Neck: Supple. Non-tender. Respiratory: No respiratory distress. Clear and equal breath sounds bilaterally. Cardiovascular: Regular rate and rhythm. Abdominal: Mild epigastric tenderness with palpation. No guarding, rebound, or rigidity. Female Genitourinary: Old blood in vaginal vault from old menstrual cycle mixed in with white vaginal discharge. No cervical motion tenderness or right/left adnexal tenderness or fullness. Back: Non-tender. No deformity or step off. Extremities: Moves all four extremities. Upper extremities: Normal inspection. Normal ROM. Lower extremities: Normal inspection. No edema. Normal ROM. Neurological: Normal cognition. AAOx4. Normal speech. Psychological: Normal affect. Normal Mood. Skin: Warm. Dry. Normal color. (ADENIKE MUNIZON) Course - Laboratory Result Diagrams: 05/19/17 04:42 05/19/17 04:42 <THO MUNIZ - Last Filed: 05/19/17 14:59> - Laboratory Result Diagrams: 05/19/17 04:42 05/19/17 04:42 <ELLIOTT LOPEZ - Last Filed: 05/27/17 22:59> - Re-evaluation Re-evalutation: 05/19/17 09:57 Patient seen and evaluated by APC with orders placed pending ultrasound. Patient is actually complaining of epigastric abdominal pain onset yesterday not associated with nausea vomiting diarrhea burning with urination or blood in the urine. She is off of her menses as of the day. She has a history of ovarian cyst with oophorectomy denies a chance of being . Says she has had chlamydia in the past. States she has noticed some vaginal discharge but no painful sex. On examination she is well-appearing nontoxic no acute distress mild epigastric abdominal tenderness not associated with guarding rebound rigidity pulsatile mass or hernia. On pelvic examination her cervical at the sclerae are some old blood from her menstrual cycle mixed in with white vaginal discharge. No cervical motion tenderness or right or left adnexal tenderness or fullness. Ultrasound is negative for acute pathology. And gave her Rocephin Zithromax started on Prilosec and Carafate. She will follow-up with her primary care physician in 3-4 days and discussed reasons for ED return sooner (ELLIOTT LOPEZ) - Vital Signs Vital signs: Temp Pulse Resp BP Pulse Ox 98.6 F 71 17 104/61 96 05/19/17 10:35 05/19/17 10:35 05/19/17 10:35 05/19/17 10:35 05/19/17 10:35 - Laboratory Laboratory results interpreted by me: 05/19/17 05/19/17 05/19/17 04:42 04:42 06:25 WBC 11.9 H MCH 26.7 L RDW 14.5 H Absolute Neutrophils 8.3 H Chloride 108 H Carbon Dioxide 21 L Urine Blood MODERATE H Discharge <THO MUNIZ - Last Filed: 05/19/17 14:59> <ELLIOTT LOPEZ - Last Filed: 05/27/17 22:59> - Discharge Clinical Impression: Vaginal discharge Abdominal pain Qualifiers: Abdominal location: unspecified location Qualified Code(s): R10.9 - Unspecified abdominal pain Condition: Stable Disposition: HOME, SELF-CARE Instructions: Abdominal Pain ([facility]) Additional Instructions: Abdominal Pain There are many causes of abdominal pain. Pain can mean a serious problem requiring surgery (such as appendicitis). It can also be an innocent problem that goes away on its own (such as a viral infection). Often, time must pass to determine the cause of pain. The physician does not feel that hospitalization is necessary, at present. Things may change within the next 24 hours. Call the doctor or come back for re- examination if any problems occur, such as: (1) Pain that becomes more severe, steady, or becomes concentrated in one specific area. Also, pain that is more severe with movement or coughing. (2) Vomiting that persists or becomes more frequent. (3) Blood in the vomitus, urine, or bowel movements. Blood in the stool may have a tarry or black appearance. (4) Shaking chills or fever greater than 100 degrees F. (5) The abdomen becomes more distended or swollen. (6) Bowel movements cease. (7) Failure to improve as expected. Cervicitis You have an inflammation of the cervix. This can be caused by germs, viruses, or allergy (for example to spermicide). Sometimes no cause is found. If there is no obvious cause, you will be tested for dangerous infections. These are herpes, gonorrhea, and chlamydia. Cultures may take a few days. If the physician is suspicious of a particular cause, you may begin treatment while waiting for cultures. Call or return if you develop abdominal pain, fever, rash, or other new symptoms. Prescriptions: Omeprazole Magnesium [Prilosec Otc] 20 mg PO DAILY #12 tablet. Sucralfate [Carafate 1 gm Tablet] 1 gm PO ACHS #15 tablet Referrals: [facility] [Provider Group] (Call for an appointment to be seen in follow-up in 3-5 days return for increasing worsening or new symptoms) Scribe Attestation: 05/19/17 09:57 I personally performed the services described in the documentation reviewed the documentation recorded by my scribe in my presence and it accurately and completely records my words and actions (ELLIOTT LOPEZ) Scribe Documentation - Scribe Written by Scribrosangela:: Milton Pacheco, 05/19/2017 [id number] acting as scribe for :: Erik <THO MUNIZ - Last Filed: 05/19/17 14:59>
[2017-05-19] MEDS ORDERED: CEFTRIAXONE INJ 1000 MG VIAL IM ONE (09:59)
[2017-05-19] MEDS ORDERED: AZITHROMYCIN 250 MG TABLET PO ONE (10:00)
[2017-05-19] MEDS ORDERED: LIDOCAINE 1% INJ-PF (10 MG/ML) 30 ML SDV INFIL ONE (10:20)
[2017-05-19 10:46] VITALS: BP 104/61
[2017-05-19 12:12] LABS: CHLAM PCR NOT DETECTED (NOT DETECT)
== END 2017-05-19 10:47 | disposition home or self-care (01) ==
LOC: ER 04:32
DX: N89.8 Other specified noninflammatory disorders of vagina (principal); R10.13 Epigastric pain
CPT/HCPCS: 99284; 96372; 36415; 87210; 85025; 81025; 80053; 81001; 87491; 87591; 76830; 93976; Q0144; J3490; J0696

== ENCOUNTER 2017-12-29 22:27 | Emergency (ER) | payer SELFPAY ==
--- NOTE | 2017-12-30 00:58 | ER Document Report ---
ED Medical Screen (RME) - General Chief Complaint: Vaginal Bleeding Stated Complaint: VAGINAL BLEEDING Time Seen by Provider: 12/30/17 00:55 Mode of Arrival: Wheelchair Information source: Patient Notes: 27-year-old female presents to ED for vaginal bleeding that started at work tonight. She states she has not even used a pad is been going on about 2-3 hours. She states she is 7 weeks has not yet had an ultrasound. She does not know her blood type. She is 2 para 1 and [facility] the [facility]. She states she is a very dull slight pelvic pain. I have greeted and performed a rapid initial assessment of this patient. A comprehensive ED assessment and evaluation of the patient, analysis of test results and completion of medical decision making process will be conducted by an additional ED providers. TRAVEL OUTSIDE OF THE [place] IN LAST 30 DAYS: No - Related Data Allergies/Adverse Reactions: ibuprofen [Ibuprofen] Adverse Reaction (Unknown, Verified 02/21/17 13:17) VOMITING Past Medical History Renal/ Medical History: Reports: Hx Ovarian Cysts. Denies: Hx Peritoneal Dialysis Musculoskeltal Medical History: Reports Hx Musculoskeletal Deformity - Foot, Reports Hx Musculoskeletal Trauma - Fractured collarbone Psychiatric Medical History: Reports: Hx Depression Traumatic Medical History: Reports: Hx Fractures - collar bone Past Surgical History: Reports: Hx Appendectomy, Hx Orthopedic Surgery - foot - Immunizations Immunizations up to date: No Hx Diphtheria, Pertussis, Tetanus Vaccination: No
[2017-12-30 01:28] LABS: ABSOLUTE BASOPHILS # (AUTO) 0.1 10^3/uL (0.0-0.2); ABSOLUTE EOSINOPHILS # (AUTO) 0.2 10^3/uL (0.0-0.6); ABSOLUTE LYMPHOCYTES (AUTO) 2.1 10^3/uL (0.5-4.7); ABSOLUTE MONOCYTES (AUTO) 0.7 10^3/uL (0.1-1.4); ABSOLUTE NEUT (AUTO) 9.4 10^3/uL (1.7-8.2); BASOPHILS % (AUTO) 0.5 % (0-2); EOSINOPHILS % (AUTO) 1.6 % (0-6); HEMATOCRIT 40.2 % (36.0-47.0); HEMOGLOBIN 13.1 g/dL (12.0-15.5); LYMPHOCYTES % (AUTO) 16.9 % (13-45); MEAN CORPUSCULAR HEMOGLOBIN 27.2 pg (27.0-33.4); MEAN CORPUSCULAR HGB CONC 32.7 g/dL (32.0-36.0); MEAN CORPUSCULAR VOLUME 83 fl (80-97); MONOCYTES % (AUTO) 5.9 % (3-13); PLATELET COUNT 206 10^3/uL (150-450); RED BLOOD COUNT 4.82 10^6/uL (3.72-5.28); RED CELL DISTRIBUTION WIDTH 14.7 % (11.5-14.0); SEGMENTED NEUTROPHILS % (AUTO) 75.1 % (42-78); TOTAL CELLS COUNTED % (AUTO) 100 %; WHITE BLOOD COUNT 12.5 10^3/uL (4.0-10.5)
[2017-12-30 01:39] LABS: APPEARANCE,URINE SLIGHTLY HAZY; BILIRUBIN,URINE NEGATIVE (NEGATIVE); COLOR,URINE YELLOW; GLUCOSE, URINE NEGATIVE (NEGATIVE); KETONES,URINE NEGATIVE (NEGATIVE); LEUKOCYTE ESTERASE,URINE NEGATIVE (NEGATIVE); NITRITE,URINE NEGATIVE (NEGATIVE); PROTEIN,URINE NEGATIVE (NEGATIVE)
[2017-12-30 01:47] LABS: ALANINE AMINOTRANSFERASE 41 U/L (9-52); ALBUMIN 4.5 g/dL (3.5-5.0); ALKALINE PHOSPHATASE 62 U/L (38-126); ANION GAP 9 (5-19); ASPARTATE AMINO TRANSFERASE 26 U/L (14-36); BILIRUBIN,DIRECT 0.3 mg/dL (0.0-0.4); BILIRUBIN,TOTAL 0.3 mg/dL (0.2-1.3); BLOOD UREA NITROGEN 9 mg/dL (7-20); CALCIUM 10.1 mg/dL (8.4-10.2); CARBON DIOXIDE 26 mmol/L (22-30); CHLORIDE 106 mmol/L (98-107); GLUCOSE 87 mg/dL (75-110); POTASSIUM 4.3 mmol/L (3.6-5.0); TOTAL PROTEIN 7.4 g/dL (6.3-8.2)
--- NOTE | 2017-12-30 03:52 | RADIOLOGY REPORT (SQ) ---
EXAM DESCRIPTION: U/S OB TRANSVAGINAL W/O DOP CLINICAL HISTORY: 27 years Female, Vaginal bleeding 7 weeks reported history of right oophorectomy. COMPARISON: None. TECHNIQUE: Complete first trimester obstetrical ultrasound with transvaginal imaging. FINDINGS: The uterus measures 8.1 x 5.0 x 4.6 cm. Cervical length of 1.9 cm. No myometrial masses. Within the endometrial canal there is a small cystic structure measuring 0.4 cm compatible with a gestational age of 5 weeks, 1 day. No pole identified. Possible yolk sac identified. Hypodensity adjacent to this collection measuring 1.4 cm in greatest dimension may represent a subchorionic hemorrhage. The right ovary is not identified. History of removal. The left ovary measures 2.5 x 1.7 x 1.9 cm. No definite free pelvic fluid identified. IMPRESSION: 1. Possible gestational sac within the endometrial canal. If this represents a gestational sac the estimated gestational age is 5 weeks, 1 day. Differential considerations include threatened normal , anembryonic , and pseudogestational sac of ectopic . No sonographic evidence of adnexal ectopic . Continued close clinical, laboratory, and sonographic follow-up recommended. 2. Possible subchorionic hemorrhage adjacent to the gestational sac measuring 1.4 cm.
--- NOTE | 2017-12-30 04:34 | ER Document Report ---
ED GI/ - General Chief Complaint: Vaginal Bleeding Stated Complaint: VAGINAL BLEEDING Time Seen by Provider: 12/30/17 00:55 Mode of Arrival: Wheelchair Information source: Patient Notes: 27-year-old female presents to ED for complaint of vaginal bleeding while she was at work tonight. She states that she did not even need to use a sanitary pad for the vaginal bleeding. She states she has been being seen by the health department and she is 7 weeks . She states she has not yet had an ultrasound. She is not sure of her blood type. Temperature 98.4 pulse 94 O2 sat 100% aspiration 16 pulse 120/77 in triage TRAVEL OUTSIDE OF THE [place] IN LAST 30 DAYS: No - HPI Patient complains to provider of: Pelvic pain, , Vaginal bleeding Onset: This evening Timing/Duration: Better Quality of pain: Dull Severity at maximum: Mild Severity in ED: Mild Pain Level: 1 Location: Pelvis Vaginal bleeding (Compared to normal period): Spotting LMP: 7 weeks : 2 Para: 1 ABO type: A+ OB ultrasound done: Yes vitamins taken: Yes Associated symptoms: Other - Mild pelvic pain with vaginal spotting supposed to be 7 weeks Exacerbated by: Denies Relieved by: Denies Similar symptoms previously: No Recently seen / treated by doctor: Yes - Related Data Allergies/Adverse Reactions: ibuprofen [Ibuprofen] Adverse Reaction (Unknown, Verified 02/21/17 13:17) VOMITING Past Medical History - General Information source: Patient Last Menstrual Period: 11/08/17 - Social History Smoking Status: Former Smoker Cigarette use (# per day): No Chew tobacco use (# tins/day): No Smoking Education Provided: No Frequency of alcohol use: None Drug Abuse: None Occupation: [employer] Lives with: Family Family History: Arthritis, DM, Hypertension, Malignancy. denies: CAD, COPD, CVA , Hyperlipidemia, Thyroid Disfunction Patient has suicidal ideation: No Patient has homicidal ideation: No - Medical History Medical History: Other - Past Medical History Cardiac Medical History: Reports: None Pulmonary Medical History: Reports: None EENT Medical History: Reports: None Neurological Medical History: Reports: None Endocrine Medical History: Reports: None Renal/ Medical History: Reports: Hx Ovarian Cysts Malignancy Medical History: Reports: None GI Medical History: Reports: None Musculoskeltal Medical History: Reports Hx Musculoskeletal Deformity - Foot, Reports Hx Musculoskeletal Trauma - Fractured collarbone Skin Medical History: Reports None Psychiatric Medical History: Reports: Hx Depression Traumatic Medical History: Reports: Hx Fractures - collar bone Infectious Medical History: Reports: None Past Surgical History: Reports: Hx Appendectomy, Hx Orthopedic Surgery - foot - Immunizations Immunizations up to date: No Hx Diphtheria, Pertussis, Tetanus Vaccination: No Review of Systems - Review of Systems Constitutional: No symptoms reported EENT: No symptoms reported Cardiovascular: No symptoms reported Respiratory: No symptoms reported Gastrointestinal: No symptoms reported Genitourinary: No symptoms reported Female Genitourinary: , Vaginal bleeding, Other - Pelvic pain Musculoskeletal: No symptoms reported Skin: No symptoms reported Hematologic/Lymphatic: No symptoms reported Neurological/Psychological: No symptoms reported -: Yes All other systems reviewed and negative Physical Exam - Vital signs Vitals: Temp Pulse Resp BP Pulse Ox 98.4 F 94 16 120/77 100 12/29/17 23:58 12/29/17 23:58 12/29/17 23:58 12/29/17 23:58 12/29/17 23:58 Interpretation: Normal - General General appearance: Appears well, Alert - HEENT Head: Normocephalic, Atraumatic Eyes: Normal Pupils: PERRL - Respiratory Respiratory status: No respiratory distress Chest status: Nontender Breath sounds: Normal Chest palpation: Normal - Cardiovascular Rhythm: Regular Heart sounds: Normal auscultation Murmur: No - Abdominal Inspection: Normal Distension: No distension Bowel sounds: Normal Tenderness: Tender Organomegaly: No organomegaly - Back Back: Normal, Nontender - Extremities General upper extremity: Normal inspection, Nontender, Normal color, Normal ROM , Normal temperature General lower extremity: Normal inspection, Nontender, Normal color, Normal ROM , Normal temperature, Normal weight bearing. No: Nguyễn's sign - Neurological Neuro grossly intact: Yes Cognition: Normal Orientation: AAOx4 Goldie Coma Scale Eye Opening: Spontaneous Goldie Coma Scale Verbal: Oriented Goldie Coma Scale Motor: Obeys Commands [place] Coma Scale Total: 15 Speech: Normal Motor strength normal: LUE, RUE, LLE, RLE Sensory: Normal - Psychological Associated symptoms: Normal affect, Normal mood - Skin Skin Temperature: Warm Skin Moisture: Dry Skin Color: Normal Course - Re-evaluation Re-evalutation: 12/30/17 04:45 Discussed labs and ultrasound with patient. Patient was given a lab slip have a repeat hCG quant done in 48 hours. - Vital Signs Vital signs: Temp Pulse Resp BP Pulse Ox 99.0 F 100 14 127/73 H 98 12/30/17 04:50 12/30/17 04:50 12/30/17 04:50 12/30/17 04:50 12/30/17 04:50 - Laboratory Result Diagrams: 12/30/17 01:07 12/30/17 01:07 Laboratory results interpreted by me: 12/30/17 12/30/17 12/30/17 01:07 01:07 01:07 WBC 12.5 H RDW 14.7 H Absolute Neutrophils 9.4 H Beta HCG, Quant 938.06 H Urine Blood MODERATE H Urine Urobilinogen 4.0 H - Diagnostic Test Radiology reviewed: Image reviewed, Reports reviewed Discharge - Discharge Clinical Impression: Vaginal bleeding in patient at less than 20 weeks gestation Condition: Stable Disposition: HOME, SELF-CARE Instructions: [facility] Additional Instructions: THREATENED MISCARRIAGE: You have been evaluated for a possible miscarriage. At this time, there is no indication that a miscarriage will occur. Most women with your symptoms will go on to have a perfectly normal baby. However, careful observation will be necessary. A miscarriage occurs when the fetus is abnormal. There is no medicine or treatment for it. You should rest in bed until the symptoms have resolved. Do not douche or have sex for at least a week, or until OK'd by the doctor. Call the doctor or return for re-examination if there is an increase in bleeding or cramping, or passage of tissue. Labs and ultrasound were discussed with you. Your blood type is a positive. I have suggested you follow-up with the health department today or tomorrow or if you are not able to follow-up with your doctor to have a repeat hCG drawn to see if it is going up as normal or it is dropping. Your ultrasound shows a possible threatened . This is been discussed with you. If you do have a miscarriage please use Tylenol and Motrin for the pain and follow-up with your health department provider. REPEAT BLOOD TEST: At this time, it is uncertain if you have a viable . During the first three months of , the hormone produced from the placenta will steadily rise, usually doubling in value every 2 - 3 days. In order to determine if your is viable and likely be succesful, a repeat of this blood test for the hormone is recommended in 2 - 3 days. An order for this test to be done as an outpatient is being provided. After you have this repeat test done, call your doctor or call us for the results. If the value of the test is increasing as would be expected in a normal , then your is likely to be ok. However, if the value of the test is declining, it will suggest something has happened with your and it will not likely be a successful . Acetaminophen Acetaminophen may be taken for pain relief or fever control. It's much safer than aspirin, offering a wider range of "safe" dosages. It is safe during . Some brand names are Tylenol, Panadol, Datril, Anacin 3, Tempra, and Liquiprin. Acetaminophen can be repeated every four hours. The following are maximum recommended dosages: WEIGHT Dose Drops Elixir Chewable( 80mg) (LBS.) drprs=droppers tsp=teaspoon 6 40 mg .4 ml (1/2) 6-11 80 mg .8 ml (full) 1/2 tsp 1 tab 12-16 120 mg 1 1/2 drprs 3/4 tsp 1 1/2 tabs 17-23 160 mg 2 drprs 1 tsp 2 tabs 24-30 240 mg 3 drprs 1 1/2 tsp 3 tabs 30-35 320 mg 2 tsp 4 tabs 36-41 360 mg 2 1/4 tsp 4 1 /2 tabs 42-47 400 mg 2 1/2 tsp 5 tabs 48-53 480 mg 3 tsp 6 tabs 54-59 520 mg 3 1/4 tsp 6 1 /2 tabs 60-64 560 mg 3 1/2 tsp 7 tabs 65-70 600 mg 3 3/4 tsp 7 1 /2 tabs 71-76 640 mg 4 tsp 8 tabs 77-82 720 mg 4 1/2 tsp 9 tabs 83-88 800 mg 5 tsp 10 tabs >89 pounds or adults 650 mg to 900 mg Acetaminophen can be repeated every four hours. Maximum daily dose not to exceed 4000 mg. These maximum recommended dosages are slightly higher than the dosages written on the product container, but these dosages are very safe and well below the toxic dosage for acetaminophen. FOLLOW-UP CARE: If you have been referred to a physician for follow-up care, call the physician s office for an appointment as you were instructed or within the next two days. If you experience worsening or a significant change in your symptoms (very heavy bleeding with large clots of blood, passage of tissue, more severe abdominal / pelvic pain or cramping, feeling faint or severe weakness, fever, etc.), notify the physician immediately or return to the Emergency Department at any time for re-evaluation. OBSTETRIC-GYNECOLOGIC (OB-TRANSPORTATION PLANNER) [facility] [place]: [facility] [address] [place] [address] [phone] Forms: Follow-Up Laboratory Testing, Return to Work Referrals: JEM ARNOLD, [Primary Care Provider] - Follow up as needed
[2017-12-30 04:54] VITALS: BP 127/73
== END 2017-12-30 04:53 | disposition home or self-care (01) ==
LOC: ER 22:27
DX: O20.9 Hemorrhage in early pregnancy, unspecified (principal); Z3A.01 Less than 8 weeks gestation of pregnancy
CPT/HCPCS: 36415; 76817; 80053; 81001; 84702; 85025; 86900; 86901; 99284

== ENCOUNTER → 2018-01-01 | Outpatient (CLI) | payer SELFPAY | LOC: OD 09:31 | PROVIDERS: ATTEND Nurse Practitioner Family | DX: O46.90 Antepartum hemorrhage, unspecified, unspecified trimester (principal) | CPT/HCPCS: 36415; 84702 ==

== ENCOUNTER 2018-04-10 10:15 | Emergency (ER) | payer SELFPAY ==
[2018-04-10] MEDS ORDERED: IPRATROPIUM/ALBUTEROL 0.5-2.5 MG/3 ML AMPUL NEB ONE (10:40)
--- NOTE | 2018-04-10 10:43 | ER Document Report ---
ED Medical Screen (RME) - General Chief Complaint: Flank Pain Stated Complaint: BACK/RIB PAIN Time Seen by Provider: 04/10/18 10:40 Mode of Arrival: Ambulatory Information source: Patient Notes: 27-year-old female with a history of teratoma who presents to the emergency room with bilateral rib pain and some subjective shortness of breath for the past week. Pain is exacerbated by movement and palpation. Patient denies any abdominal pain, nausea, vomiting. The patient denies any fever. She denies any pain or swelling in the calves or lower extremities. She denies any abdominal pain. TRAVEL OUTSIDE OF THE [place] IN LAST 30 DAYS: No - HPI Onset: Yesterday Onset/Duration: Gradual Quality of pain: Dull Severity: Moderate Pain Level: 3 Associated Symptoms: Shortness of breath. denies: Chest pain, Cough (productive ), Cough (nonproductive) Exacerbated by: Movement Relieved by: Denies Similar symptoms previously: No Recently seen / treated by doctor: No - Related Data Smoking: Non-smoker Frequency of alcohol use: None Drug Abuse: None Allergies/Adverse Reactions: ibuprofen [Ibuprofen] Adverse Reaction (Unknown, Verified 04/10/18 10:26) VOMITING Past Medical History - General Information source: Patient - Social History Cigarette use (# per day): No Chew tobacco use (# tins/day): No Frequency of alcohol use: Rare Drug Abuse: None Lives with: Family Family history: None - Past Medical History Cardiac Medical History: Reports: None Pulmonary Medical History: Reports: None EENT Medical History: Reports: None Neurological Medical History: Reports: None Endocrine Medical History: Reports: None Renal/ Medical History: Reports: Hx Ovarian Cysts. Denies: Hx Peritoneal Dialysis Malignancy Medical History: Reports: Other - Ovarian teratoma GI Medical History: Reports: None Musculoskeltal Medical History: Reports Hx Musculoskeletal Deformity - Foot, Reports Hx Musculoskeletal Trauma - Fractured collarbone Psychiatric Medical History: Reports: Hx Depression Traumatic Medical History: Reports: Hx Fractures - collar bone Past Surgical History: Reports: Hx Appendectomy, Hx Gynecologic Surgery - right ovary and tube removed, Hx Orthopedic Surgery - foot - Immunizations Immunizations up to date: No Hx Diphtheria, Pertussis, Tetanus Vaccination: No Review of Systems - Review of Systems Constitutional: denies: Chills, Fever EENT: No symptoms reported Cardiovascular: No symptoms reported Respiratory: See HPI Gastrointestinal: No symptoms reported Genitourinary: No symptoms reported Female Genitourinary: No symptoms reported Musculoskeletal: See HPI Skin: No symptoms reported Hematologic/Lymphatic: No symptoms reported Neurological/Psychological: No symptoms reported Physical Exam - Vital signs Vitals: Temp Pulse Resp BP Pulse Ox 98.3 F 88 17 120/75 100 04/10/18 10:21 04/10/18 10:21 04/10/18 10:21 04/10/18 10:21 04/10/18 10:21 Notes: Physical exam: GENERAL: 27-year-old female, alert and oriented 3, she does appear in mild discomfort HEAD: Atraumatic, normocephalic. EYES: Pupils equal round and reactive to light, extraocular movements intact, sclera anicteric, conjunctiva are normal. ENT: TMs normal, nares patent, oropharynx clear without exudates. Moist mucous membranes. NECK: Normal range of motion, supple without obvious mass or JVD. LUNGS: Breath sounds clear to auscultation bilaterally and equal. No wheezes rales or rhonchi. HEART: Regular rate and rhythm without murmurs, rubs or gallops. Chest wall: She does have tenderness to palpation of the ribs bilaterally. She has pain when she moves her torso. ABDOMEN: Soft, normoactive bowel sounds. No tenderness to palpation. No guarding, no rebound. No masses appreciated. EXTREMITIES: Normal range of motion, no pitting or edema. No clubbing or cyanosis. Her calves are nontender there is no asymmetry. NEUROLOGICAL: Cranial nerves II through XII grossly intact. Normal speech, moving all extremities. PSYCH: Normal mood, normal affect. SKIN: Warm, Dry, normal turgor, no rashes or lesions noted. Course - Re-evaluation Re-evalutation: 04/10/18 14:44 Note: Patient is PERC negative but does have a positive d-dimer. Therefore a CTA was done and shows no evidence of pulmonary emboli. Her oxygen saturation remains at 99-100% on room air. We will treat symptomatically and have her follow-up with - Vital Signs Vital signs: Temp Pulse Resp BP Pulse Ox 98.3 F 88 17 120/75 100 04/10/18 10:21 04/10/18 10:21 04/10/18 10:21 04/10/18 10:21 04/10/18 10:21 - Laboratory Result Diagrams: 04/10/18 11:15 04/10/18 11:15 Laboratory results interpreted by me: 04/10/18 04/10/18 11:15 11:15 WBC 11.2 H MCH 26.8 L RDW 15.0 H Seg Neutrophils % 80.6 H Absolute Neutrophils 9.1 H D-Dimer 3.26 H - Diagnostic Test Radiology reviewed: Image reviewed, Reports reviewed - CTA shows no evidence of pulmonary emboli Doctor's Discharge - Discharge Clinical Impression: Chest wall pain Condition: Stable Disposition: HOME, SELF-CARE Additional Instructions: As we discussed, the CT of the chest show no evidence of blood clot or problems with the lungs. Rest, drink plenty of fluids, take pain medicine as needed. I would like you to follow-up with a primary care doctor this week. Return to the emergency room for worsening pain, worsening shortness of breath or any concerns or getting worse. The pain medicine you're taking prescribed as a narcotic. There are several important things you should know about this medicine: 1. This medicine contains Tylenol: It is important that you do not take Tylenol (or acetaminophen) while on this medicine. Tylenol is metabolized by the liver and taking too much Tylenol (acetaminophen) can lay to liver damage and even liver failure. 2. Taking narcotics for too long can lead to physical and mental dependence. Take this medicine only if really needed and in the lowest quantity to achieve pain relief. 3. Do not drink alcohol while on this medicine. Alcohol interacts with narcotics and the combination can be dangerous. 4. Do not drive or operate machinery while on this medicine. 5. Narcotics do cause constipation, so drink plenty of fluids and daily stool softeners. Prescriptions: Oxycodone HCl/Acetaminophen [Percocet 5-325 mg Tablet] 1 - 2 tab PO ASDIR PRN # 25 tablet PRN Reason: Forms: Return to Work
--- NOTE | 2018-04-10 11:42 | RADIOLOGY REPORT (SQ) ---
EXAM DESCRIPTION: CHEST SINGLE VIEW COMPLETED DATE/TIME: 04/10/2018 11:27 am REASON FOR STUDY: chest pain COMPARISON: 09/05/2011. EXAM PARAMETERS: NUMBER OF VIEWS: One view. TECHNIQUE: Single frontal radiographic view of the chest acquired. RADIATION DOSE: NA LIMITATIONS: None. FINDINGS: LUNGS AND PLEURA: No opacities, masses or pneumothorax. No pleural effusion. MEDIASTINUM AND HILAR STRUCTURES: No masses. Contour normal. HEART AND VASCULAR STRUCTURES: Heart normal in size. Normal vasculature. BONES: No acute findings. HARDWARE: None in the chest. OTHER: No other significant finding. IMPRESSION: NO ACUTE RADIOGRAPHIC FINDING IN THE CHEST. TECHNICAL DOCUMENTATION: JOB ID: [id number] [employer]- All Rights Reserved Reading location - IP/workstation name: [email or web address]
[2018-04-10 11:45] LABS: ABSOLUTE EOSINOPHILS # (AUTO) 0.1 10^3/uL (0.0-0.6); ABSOLUTE LYMPHOCYTES (AUTO) 1.5 10^3/uL (0.5-4.7); ABSOLUTE MONOCYTES (AUTO) 0.6 10^3/uL (0.1-1.4); ABSOLUTE NEUT (AUTO) 9.1 10^3/uL (1.7-8.2); BASOPHILS % (AUTO) 0.2 % (0-2); EOSINOPHILS % (AUTO) 0.8 % (0-6); HEMATOCRIT 42.3 % (36.0-47.0); HEMOGLOBIN 13.7 g/dL (12.0-15.5); MEAN CORPUSCULAR HEMOGLOBIN 26.8 pg (27.0-33.4); MEAN CORPUSCULAR HGB CONC 32.5 g/dL (32.0-36.0); MEAN CORPUSCULAR VOLUME 82 fl (80-97); MONOCYTES % (AUTO) 5.4 % (3-13); PLATELET COUNT 197 10^3/uL (150-450); RED BLOOD COUNT 5.13 10^6/uL (3.72-5.28); SEGMENTED NEUTROPHILS % (AUTO) 80.6 % (42-78); TOTAL CELLS COUNTED % (AUTO) 100 %; WHITE BLOOD COUNT 11.2 10^3/uL (4.0-10.5)
[2018-04-10 12:02] LABS: ALANINE AMINOTRANSFERASE 31 U/L (9-52); ALBUMIN 4.8 g/dL (3.5-5.0); ALKALINE PHOSPHATASE 62 U/L (38-126); ANION GAP 12 (5-19); ASPARTATE AMINO TRANSFERASE 19 U/L (14-36); BILIRUBIN,DIRECT 0.3 mg/dL (0.0-0.4); BILIRUBIN,TOTAL 0.3 mg/dL (0.2-1.3); BLOOD UREA NITROGEN 13 mg/dL (7-20); CARBON DIOXIDE 26 mmol/L (22-30); CHLORIDE 107 mmol/L (98-107); GLUCOSE 94 mg/dL (75-110); POTASSIUM 4.7 mmol/L (3.6-5.0); SODIUM 144.8 mmol/L (137-145); TOTAL PROTEIN 7.9 g/dL (6.3-8.2)
--- NOTE | 2018-04-10 13:42 | RADIOLOGY REPORT (SQ) ---
EXAM DESCRIPTION: CTA CHEST COMPLETED DATE/TIME: 04/10/2018 1:27 pm REASON FOR STUDY: chest pain COMPARISON: None. TECHNIQUE: CT scan of the chest performed using helical scanning technique with dynamic intravenous contrast injection. Images reviewed with lung, soft tissue and bone windows. Reconstructed coronal and sagittal MPR images reviewed. Additional 3 dimensional post-processing performed to develop Maximal Intensity Projection images ([place] P). All images stored on PACS. All CT scanners at this facility use dose modulation, iterative reconstruction, and/or weight based d osing when appropriate to reduce radiation dose to as low as reasonably achievable (ALARA). [facility]: Dose Right [facility]: CareDose [facility]: Dose Right [facility]: Teradose 4D [facility]: [employer] CONTRAST TYPE AND DOSE: contrast/concentration: Isovue 370.00 mg/ml; Total Contrast Delivered: 70.0 ml; Total Saline Delivered: 110.0 ml Contrast bolus adequate for pulmonary arteries and aorta. RENAL FUNCTION: BUN 13 creatinine 0.63. RADIATION DOSE: CT Rad equipment meets quality standard of care and radiation dose reduction techniq ues were employed. CTDIvol: 3.3 - 14.3 mGy. DLP: 530 mGy-cm. . LIMITATIONS: None. FINDINGS: LUNGS AND PLEURA: No masses, infiltrates, pneumothorax. No pleural effusions, calcificati ons. AORTA AND GREAT VESSELS: No aneurysm. No dissection. HEART: No pericardial effusion. No significant coronary artery calcifications. PULMONARY ARTERIES: No emboli visualized in the main pulmonary arteries or the segmental branches. HILAR AND MEDIASTINAL STRUCTURES: No identified masses or abnormal nodes. HARDWARE: None in the chest. UPPER ABDOMEN: No significant findings. Limited exam. THYROID AND OTHER SOFT TISSUES: No masses. No adenopathy. BONES: No acute or significant finding. 3D MIPS: Confirm above findings. OTHER: No other significant finding. IMPRESSION: NORMAL CTA OF THE CHEST. NO PULMONARY EMBOLI. COMMENT: Quality ID # [id number]: Final reports with documentation of one or more dose reduction techniques (e.g., Automated exposure control, adjustment of the mA and/or kV according to patient size, use of iterative reconstruction technique) TECHNICAL DOCUMENTATION: JOB ID: [id number] [employer]- All Rights Reserved Reading location - IP/workstation name: [email or web address]
[2018-04-10] MEDS ORDERED: OXYCODONE-ACETAMINOPHEN 5-325 MG TABLET PO ONE (14:45)
[2018-04-10 14:55] VITALS: BP 130/88
== END 2018-04-10 14:40 | disposition home or self-care (01) ==
LOC: ER 10:15
DX: R07.89 Other chest pain (principal); R10.9 Unspecified abdominal pain; M54.9 Dorsalgia, unspecified; R07.81 Pleurodynia; R06.02 Shortness of breath
CPT/HCPCS: 94640; 99284; 36415; 84702; 85025; 80053; 85379; 71045; 71275; J7620

== ENCOUNTER 2018-07-14 13:18 | Emergency (ER) | payer SELFPAY ==
[2018-07-14 13:29] VITALS: BP 125/75
--- NOTE | 2018-07-14 14:43 | ER Document Report ---
ED Headache - General Chief Complaint: Headache Stated Complaint: HEAD PAIN Time Seen by Provider: 07/14/18 14:05 Mode of Arrival: Ambulatory Notes: 27-year-old female presents to ED for pain around a lump to the back of her head. She states she has not had any injury and there is no warmth or redness to the area. She states she has noticed it for several days. TRAVEL OUTSIDE OF THE [place] IN LAST 30 DAYS: No - HPI Patient complains to provider of: Headache Patient reports: Other - Painful lump to the back of the right side of her head that is causing her headache Onset: Other - Nola days Onset was: Gradual Timing: Still present Quality of pain: Pressure, Other Severity: Moderate Pain Level: 4 - Related Data Allergies/Adverse Reactions: Pork/Porcine Containing Products Adverse Reaction (Mild, Verified 07/14/18 14:09 ) ibuprofen [Ibuprofen] Adverse Reaction (Unknown, Verified 07/14/18 13:20) VOMITING Past Medical History - General Information source: Patient - Social History Smoking Status: Current Every Day Smoker Cigarette use (# per day): Yes - Half pack per day Smoking Education Provided: Yes - 4 min Frequency of alcohol use: Rare Drug Abuse: None 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 denies: CAD, COPD, CVA , Hyperlipidemia, Thyroid Disfunction Patient has suicidal ideation: No Patient has homicidal ideation: No - Past Medical History Cardiac Medical History: Reports: None Pulmonary Medical History: Reports: None EENT Medical History: Reports: None Neurological Medical History: Reports: None Endocrine Medical History: Reports: None Renal/ Medical History: Reports: Hx Ovarian Cysts Malignancy Medical History: Reports: None GI Medical History: Reports: None Musculoskeletal Medical History: Reports Hx Musculoskeletal Deformity - Foot, Reports Hx Musculoskeletal Trauma - Fractured collarbone Skin Medical History: Reports None Psychiatric Medical History: Reports: Hx Depression Traumatic Medical History: Reports: Hx Fractures - collar bone Infectious Medical History: Reports: None Past Surgical History: Reports: Hx Appendectomy, Hx Gynecologic Surgery - right ovary and tube removed, Hx Oral Surgery - wisdom teeth, Hx Orthopedic Surgery - multiple foot surgery - Immunizations Immunizations up to date: No Hx Diphtheria, Pertussis, Tetanus Vaccination: No Review of Systems - Review of Systems Constitutional: No symptoms reported EENT: No symptoms reported Cardiovascular: No symptoms reported Respiratory: No symptoms reported Gastrointestinal: No symptoms reported Genitourinary: No symptoms reported Female Genitourinary: No symptoms reported Musculoskeletal: No symptoms reported Skin: Other - knot to the right posterior scalp no redness or warmth Hematologic/Lymphatic: No symptoms reported Neurological/Psychological: Headaches -: Yes All other systems reviewed and negative Physical Exam - Vital signs Vitals: Temp Pulse Resp BP Pulse Ox 98.2 F 77 18 125/75 100 07/14/18 13:28 07/14/18 13:28 07/14/18 13:28 07/14/18 13:28 07/14/18 13:28 Interpretation: Normal - General General appearance: Appears well, Alert - HEENT Head: Normocephalic, Atraumatic Eyes: Normal Pupils: PERRL - Respiratory Respiratory status: No respiratory distress Chest status: Nontender Breath sounds: Normal Chest palpation: Normal - Cardiovascular Rhythm: Regular Heart sounds: Normal auscultation Murmur: No - Abdominal Inspection: Normal Distension: No distension Bowel sounds: Normal Tenderness: Nontender Organomegaly: No organomegaly - Back Back: Normal, Nontender - Extremities General upper extremity: Normal inspection, Nontender, Normal color, Normal ROM , Normal temperature General lower extremity: Normal inspection, Nontender, Normal color, Normal ROM , Normal temperature, Normal weight bearing. No: Nguyễn's sign - Neurological Neuro grossly intact: Yes Cognition: Normal Orientation: AAOx4 Benedict Coma Scale Eye Opening: Spontaneous Goldie Coma Scale Verbal: Oriented Goldie Coma Scale Motor: Obeys Commands Benedict Coma Scale Total: 15 Speech: Normal Motor strength normal: LUE, RUE, LLE, RLE Sensory: Normal - Psychological Associated symptoms: Normal affect, Normal mood - Skin Skin Temperature: Warm Skin Moisture: Dry Skin Color: Normal Location of irregularity: Scalp - Tender knot to the right posterior scalp with no redness or fever Irregularity with: Swelling, Tenderness. negative: Inflammation Course - Re-evaluation Re-evalutation: 07/14/18 15:48 CT results discussed with patient and written report of CT given the patient to follow-up with her primary doctor. Patient instructed on use of Tylenol for discomfort and to follow-up with her primary doctor within the next several days or next week. Patient states she needs a note to return to work. And it will be given to patient. - Vital Signs Vital signs: Temp Pulse Resp BP Pulse Ox 98.2 F 77 18 125/75 100 07/14/18 13:28 07/14/18 13:28 07/14/18 13:28 07/14/18 13:28 07/14/18 13:28 - Diagnostic Test Radiology reviewed: Image reviewed, Reports reviewed Discharge - Discharge Clinical Impression: Painful "knot" on posterior scalp Condition: Stable Disposition: HOME, SELF-CARE Additional Instructions: You were seen today for a painful "knot "on the back of your scalp. There is no obvious abscess to the back area scalp. There is no redness there is no inflammation or any signs of infection. You deny any injury to the back your scalp. The CAT scan did not show any abnormality to your scalp or your head. Acetaminophen Acetaminophen may be taken for pain relief or fever control. It's much safer than aspirin, offering a wider range of "safe" dosages. It is safe during . Some brand names are Tylenol, Panadol, Datril, Anacin 3, Tempra, and Liquiprin. Acetaminophen can be repeated every four hours. The following are maximum recommended dosages: WEIGHT Dose Drops Elixir Chewable( 80mg) (LBS.) drprs=droppers tsp=teaspoon 6 40 mg .4 ml (1/2) 6-11 80 mg .8 ml (full) 1/2 tsp 1 tab 12-16 120 mg 1 1/2 drprs 3/4 tsp 1 1/2 tabs 17-23 160 mg 2 drprs 1 tsp 2 tabs 24-30 240 mg 3 drprs 1 1/2 tsp 3 tabs 30-35 320 mg 2 tsp 4 tabs 36-41 360 mg 2 1/4 tsp 4 1 /2 tabs 42-47 400 mg 2 1/2 tsp 5 tabs 48-53 480 mg 3 tsp 6 tabs 54-59 520 mg 3 1/4 tsp 6 1 /2 tabs 60-64 560 mg 3 1/2 tsp 7 tabs 65-70 600 mg 3 3/4 tsp 7 1 /2 tabs 71-76 640 mg 4 tsp 8 tabs 77-82 720 mg 4 1/2 tsp 9 tabs 83-88 800 mg 5 tsp 10 tabs >89 pounds or adults 650 mg to 900 mg Acetaminophen can be repeated every four hours. Maximum daily dose not to exceed 4000 mg. These maximum recommended dosages are slightly higher than the dosages written on the product container, but these dosages are very safe and well below the toxic dosage for acetaminophen. FOLLOW-UP CARE: If you have been referred to a physician for follow-up care, call the physician s office for an appointment as you were instructed or within the next two days. If you experience worsening or a significant change in your symptoms, notify the physician immediately or return to the Emergency Department at any time for re-evaluation. Forms: Return to Work Referrals: JEM ARNOLD DO [Primary Care Provider] - Follow up as needed
--- NOTE | 2018-07-14 15:12 | RADIOLOGY REPORT (SQ) ---
EXAM DESCRIPTION: CT HEAD WITHOUT COMPLETED DATE/TIME: 07/14/2018 3:02 pm REASON FOR STUDY: head knot with pain COMPARISON: None. TECHNIQUE: Axial images acquired through the brain without intravenous contrast. Images reviewed wi th bone, brain and subdural windows. Images stored on PACS. All CT scanners at this facility use dose modulation, iterative reconstruction, and/or weight based d osing when appropriate to reduce radiation dose to as low as reasonably achievable (ALARA). [facility]: Dose Right [facility]: CareDose [facility]: Dose Right [facility]: Teradose 4D [facility]: [employer] RADIATION DOSE: mGy. LIMITATIONS: None. FINDINGS: VENTRICLES: Normal size and contour. CEREBRUM: No masses. No hemorrhage. No midline shift. No evidence for acute infarction. Normal gra y/white matter differentiation. No areas of low density in the white matter. CEREBELLUM: No masses. No hemorrhage. No alteration of density. No evidence for acute infarction. EXTRAAXIAL SPACES: No fluid collections. No masses. ORBITS AND GLOBE: No intra- or extraconal masses. Normal contour of globe without masses. CALVARIUM: No fracture. PARANASAL SINUSES: No fluid or mucosal thickening. SOFT TISSUES: No mass or hematoma. OTHER: No other significant finding. IMPRESSION: NORMAL BRAIN CT WITHOUT CONTRAST. EVIDENCE OF ACUTE STROKE: NO. COMMENT: Quality ID # [id number]: Final reports with documentation of one or more dose reduction techniques (e.g., Automated exposure control, adjustment of the mA and/or kV according to patient size, use of iterative reconstruction technique) TECHNICAL DOCUMENTATION: JOB ID: [id number] [employer]- All Rights Reserved Reading location - IP/workstation name: [email or web address]
== END 2018-07-14 15:59 | disposition home or self-care (01) ==
LOC: ER 13:18
DX: R22.0 Localized swelling, mass and lump, head (principal); R51 Headache; F17.210 Nicotine dependence, cigarettes, uncomplicated; Z71.6 Tobacco abuse counseling
CPT/HCPCS: 70450; 99283; 99406